=== PATIENT | female | born 1975 | race Caucasian/White ===

== ENCOUNTER 2018-02-23 14:47 | Emergency (ER) | payer OTHER ==
[2018-02-23 15:42] LABS: #Basophils 0.1 thou/uL (0.0-0.2); #Eosinphils 0.1 thou/uL (0.0-0.7); #Lymphocytes 2.1 thou/uL (1.20-3.40); #Monocytes 0.5 thou/uL (0.11-0.59); %Basophils 0.6 % (0.0-1.0); %Eosinophils 0.8 % (0.0-10.0); %Lymphocytes 21.6 % (21.0-51.0); %Monocytes 5.6 % (0.0-10.0); %Neutrophils 71.4 % (42.0-75.0); Hemoglobin 13.4 g/dL (12.0-16.0); Mean Corpuscular HGB CONC 33.7 g/dL (32.0-36.0); Mean Corpuscular Volume 86.2 fL (78.0-98.0); Mean Platelet Volume 7.8 fL (7.4-10.4); Platelet Count 279 thou/uL (130-400); RBC Distribution Width 11.8 % (11.5-14.5); Red Blood Cell (RBC) Count 4.63 mill/uL (4.20-5.40); White Blood Cell (WBC) Count 9.8 thou/uL (4.8-10.8)
[2018-02-23 16:43] LABS: Bacteria/HPF 4+ HPF (None Seen); Bilirubin Negative (Negative); Blood, Urine Large (Negative); Glucose, Urine (Dipstick) Negative (Negative); Hyaline Casts/LPF 7-10 HYALINE CAST LPF (0-3 Hyaline); Leukocyte Trace (Negative); Nitrite Positive (Negative); Protein, Urine (Dipstick) 100 mg/dL (Neg-Trace); Urobilinogen 0.2 mg/dL (0.2-1.0); WBC/HPF 21-50 HPF (0-3); pH, Urine 8.5 (5.0-9.0)
[2018-02-23 16:45] LABS: Clarity Cloudy (Clear); Pathc Cast-AUWi Flag 3.35 (0-2.49)
[2018-02-23 16:49] LABS: RBC/HPF GREATER THAN 50-TNTC HPF (0-3)
== END 2018-02-23 17:01 | disposition home or self-care (01) ==
LOC: ERS 14:47
DX: O20.0 Threatened abortion (principal); Z3A.01 Less than 8 weeks gestation of pregnancy
CPT/HCPCS: 81003; 81015; 84702; 85025; 86900; 86901; 90384; 96360; 96372

== ENCOUNTER 2019-03-19 12:23 | Inpatient (IN) | payer OTHER ==
[2019-03-19] MEDS ORDERED: Labetalol HCl 100 MG/20 ML VIAL ONE ×2 (13:45→13:54)
[2019-03-19 13:51] VITALS: BMI 39.5
[2019-03-19] MEDS ORDERED: Promethazine HCl 25 MG/ML VIAL IM PRN ×2 (13:56→17:07)
[2019-03-19] MEDS ORDERED: hydrALAZINE 20 MG/ML VIAL SLOW IVP PRN (13:56)
[2019-03-19] MEDS ORDERED: Ondansetron PF 4 MG/2 ML Vial IVP PRN ×2 (13:56→17:07)
[2019-03-19] MEDS ORDERED: Bicitra 30 ML UDCUP PO SCH ×3 (14:00→16:45)
[2019-03-19] MEDS ORDERED: Betamet Acet/Betamet Na Ph 30 MG/5 ML VIAL IM SCH (14:00)
[2019-03-19] MEDS ORDERED: Labetalol HCl 100 MG/20 ML VIAL SLOW IVP SCH ×2 (14:00→14:45)
[2019-03-19] MEDS ORDERED: Magnesium Sulfate 20 gm/500 ml 20 GM/500 ML BAG IVPB PRN (14:05)
--- NOTE | 2019-03-19 14:05 | PDOC.EVN ---
Event Note - Event Note Event Note: 1400 [facility] I was notified of Ms Loyd's arrival. HX CHTN...for repeat EC EGA is 35 weeks Sent by MD Thom for elevated BPs in office. here BP was 189/102....given labetolol for severe range urgent HTN. As over 34 weeks, we will: 1. Give Mag 2. Give Celestone x1 3. Notify Pedi 4. Plan for repeat CS...D/W DR Tomas. We will plan this after her clinic around 1630 today. I am on the way to go see her in Triage. Admitted to L&D
[2019-03-19] MEDS: Betamet Acet/Betamet Na Ph 30 MG/5 ML VIAL ONE ×2 (14:14→16:03)
[2019-03-19] MEDS ORDERED: Clindamycin/D5W 900 MG in Premix Bag 1 BAG IVPB SCH (14:15)
[2019-03-19 14:25] LABS: Mean Corpuscular HGB CONC 35.4 g/dL (32.0-36.0); Mean Corpuscular Hemoglobin 30.5 pg (27.0-31.0); Mean Corpuscular Volume 86.1 fL (78.0-98.0); Platelet Count 178 thou/uL (130-400); RBC Distribution Width 12.1 % (11.5-14.5); Red Blood Cell (RBC) Count 3.59 mill/uL (4.20-5.40)
--- NOTE | 2019-03-19 14:40 | HP ---
TIME OF EVALUATION: Roughly 1400 hours to 1415 hours. LOCATION: Triage. Please label this severe preeclampsia at 35 weeks. The patient of Dr. Tomas. HISTORY OF PRESENT ILLNESS: This is a 43-year-old female, 5, para 2, who has a history of chronic hypertension on Procardia 30 mg p.o. daily, who was seen in the office today and was sent by Dr. Tomas for blood pressure evaluation as her pressure there was elevated above her baseline. Here in Labor and Delivery, her first blood pressure was 189/102 and 158/72. The 3rd blood pressure was 160/82. This has defaulted to our stat antihypertensive medication which she has given. I have also ordered an additional labetalol 20 mg IV x1 as her blood pressure did not respond to the initial hydralazine. She denies visual changes or headache or contractions. She has good movement. She has no vaginal bleeding or leakage of fluid. REVIEW OF SYSTEMS: Complete review of systems was checked and is otherwise negative unless specified in the HPI. PAST MEDICAL HISTORY: Significant for chronic hypertension. MEDICATIONS: Procardia 30 mg p.o. daily. PAST SURGICAL HISTORY: One . SOCIAL HISTORY: Negative for alcohol, tobacco, or drug use. OB HISTORY: She has had one previous with her last and she desires a repeat with this one. PHYSICAL EXAMINATION: VITAL SIGNS: Her blood pressure is 163/89 and then it marco antonio to 170/90 when I was in the room. GENERAL: She is in no acute distress. ABDOMEN: Soft and nontender. There is no gross evidence of bleeding or leakage of fluid on the perineum. CERVIX: Cervical exam was deferred at this time. monitor, heart tones show a reactive nonstress test with a baseline rate around 130s. No contractions on tocodynamometer. ASSESSMENT: This is a 43-year-old, G5, P2, at 35 weeks with a history of previous , who is on Procardia 30 mg p.o. daily, 35 weeks and zero days, with severe range of blood pressures. PLAN: 1. I have discussed the case with Dr. Tomas. 2. I evaluated the patient at bedside and recommended delivery as she is over 34 weeks. 3. Due to her severe range of blood pressures, the risk of abruption and potential cerebrovascular event is greater than the risk of prematurity at this time. 4. I have notified Dr. Butler by [employer] of the patient's delivery. 5. It is important to note that there currently are no NICU beds. If the baby has to be transferred, it will be stabilized and then transferred, but at this time I do not feel the maternal transport is recommended as her pressures are severely elevated. 6. I have recommended NICU come talk to the mother about potential baby transport if necessary. 7. Based on Dr. Tomas's schedule and the fact that we are awaiting some steroid benefit (Celestone has been ordered x1), we will plan to do the around 4:30 to 5:00 p.m. this afternoon. 8. I have notified Anesthesia as well. 9. The patient has allergies to penicillin, so I have ordered her clindamycin for preop evaluation. 10. Magnesium sulfate. Job ID: [id number]
--- NOTE | 2019-03-19 14:44 | PDOC.EVN ---
Event Note - Event Note Event Note: 1445: Ordered 40mg Labetolol SIVP for BP 190/105. Dr Butler (NICU) and I discussed with her possibility of ransport if needed due to no NICU beds here. Patient aware
[2019-03-19 14:48] LABS: ALT (SGPT) 12 U/L (8-55); AST (SGOT) 16 U/L (5-34); Albumin 3.3 g/dL (3.5-5.0); Alkaline Phosphatase 110 U/L (40-110); Anion Gap 12 mmol/L (10-20); BUN (Urea Nitrogen) 6 mg/dL (7.0-18.7); Bilirubin, Total 0.2 mg/dL (0.2-1.2); Calc. Creatinine Clearance 223 mL/min (70-130); Calcium 9.3 mg/dL (7.8-10.44); Carbon Dioxide 22 mmol/L (22-29); Chloride 106 mmol/L (98-107); Estimated GFR-MDRD Greater than 90; Globulin 3.3 g/dL (2.4-3.5); Glucose 77 mg/dL (70-105); Potassium 4.1 mmol/L (3.5-5.1); Protein, Total 6.6 g/dL (6.0-8.3); Sodium 136 mmol/L (136-145)
[2019-03-19 15:06] LABS: Syphilis Antibody Nonreactive (Nonreactive); Syphilis Antibody Index 0.05 S/CO (<1.00 Non-Reactive)
[2019-03-19 15:07] LABS: HBSAg Index 0.19 S/CO (0-0.99); HIV (1/2) Antibody/Antigen Non-Reactive (NonReactive); HIV 1/2 INDEX 0.09 S/CO (<1.00); Hep B Surf Ag Non-Reactive S/CO (NonReactive)
[2019-03-19] MEDS ORDERED: Famotidine/PF 20 mg/2ml Vial ONE (16:20)
[2019-03-19] MEDS ORDERED: MORPHINE 5 MG/10 ML PF VIAL ONE (16:23)
[2019-03-19] MEDS ORDERED: Oxytocin 10 UNITS/ML VIAL ONE (16:24)
[2019-03-19] MEDS ORDERED: ePHEDrine/0.9% NaCl/PF SYRINGE 50 mg/10 ml ONE (16:25)
[2019-03-19] MEDS ORDERED: PHENYLEPHRINE-NS 100 MCG/ML 10 ML SYRINGE ONE (16:25)
[2019-03-19] MEDS ORDERED: Calcium Gluc 4.6 MEQ/10 ML (100 MG/ML) SLOW IVP PRN (16:33)
[2019-03-19] MEDS ORDERED: traMADol HCl 50 MG TAB PO PRN ×2 (16:33)
[2019-03-19] MEDS ORDERED: CEFAZOLIN 2 GM in Premix Bag 1 BAG IVPB SCH (16:45)
[2019-03-19] MEDS ORDERED: Ondansetron PF 4 MG/2 ML Vial ONE (16:51)
[2019-03-19] MEDS ORDERED: Ketorolac Tromethamine 30 MG/ML VIAL ONE (16:55)
[2019-03-19] MEDS ORDERED: HYDROmorphone 2 MG/ML VIAL SLOW IVP PRN (17:07)
[2019-03-19] MEDS ORDERED: Naloxone HCl 0.4 mg/ml Vial IVP PRN ×2 (17:07)
[2019-03-19] MEDS ORDERED: diphenhydrAMINE 50 MG/ML VIAL IVP PRN (17:07)
[2019-03-19] MEDS ORDERED: Naloxone HCl 0.4 mg/ml Vial IV PRN (17:07)
[2019-03-19] MEDS ORDERED: Meperidine HCl/PF 25 MG/ML VIAL SLOW IVP PRN (17:07)
[2019-03-19] MEDS ORDERED: Promethazine HCl 25 MG SUPP PR PRN (17:07)
[2019-03-19] MEDS ORDERED: Ondansetron HCl/PF 4 MG/2 ML Vial IVP PRN (17:07)
[2019-03-19] MEDS ORDERED: L&D-Morphine 4 MG/ML VIAL SLOW IVP PRN (17:07)
[2019-03-19] MEDS ORDERED: Communication Order-Pharmacy FS SCH (17:15)
[2019-03-19 17:27] LABS: Actual Bicarbonate (HCO3a) 26.6 mEq/L (22-28); Base Excess (BEa) -2.4 mEq/L (-2.0 to +3.0)
--- NOTE | 2019-03-19 17:42 | OP ---
DATE OF PROCEDURE: 03/19/2019 ROBOTIC WELD TECHNICIAN NOTE TIME OF DELIVERY: Roughly 1658. PREOPERATIVE DIAGNOSIS: The patient with a prior x1, who is at 35 weeks and 1 day with severe range of blood pressures requiring repeat . PROCEDURE PERFORMED: Repeat and vacuum-assisted head delivery to the hysterotomy x1 (no pop-off). ROBOTIC WELD TECHNICIAN: Francisco Huber MD ANESTHESIA: Spinal. ANTIBIOTICS: Clindamycin 900 mg IV x1. DESCRIPTION OF PROCEDURE: This is a brief assist note. For full details of the surgery, please turn to the surgeon's operative dictation. In brief, I assisted with the from skin incision all the way to fascial closure. At fascial closure, after that was complete, I scrubbed out due to a patient's needs in the emergency department. Dr. Tomas and the surgical services assistant completed the subcutaneous fatty tissue closure and the skin approximation with alpa. It is important to note that we proceeded with a low transverse section without extension via Pfannenstiel skin incision. A vacuum was used to assist with head delivery to the hysterotomy as it was not engaged and it was difficult to put fundal pressure to deliver the child due to the patient's BMI. It is important to note that the vacuum used was effortless without pop-off and only one attempt was required before successful head delivery. Baby was to be transferred to another NICU because our NICU was full. The indication for transport is grunting and retraction. The baby is breathing by itself and did not require resuscitation, but due to the grunting and retraction with breathing, it was felt by Neonatology that the baby should be transported. This was explained to the mother. We will continue with her magnesium sulfate postop. Job ID: [id number] [facility]
[2019-03-19] MEDS ORDERED: NS / Oxytocin 40 units/1000ml 1,000 ML ONE (18:32)
--- NOTE | 2019-03-19 19:25 | OP ---
DATE OF PROCEDURE: 03/19/2019 PREOPERATIVE DIAGNOSES: 1. A 43-year-old white female, G5, P2, A2 at 35 weeks with chronic hypertension with superimposed severe preeclampsia by blood pressure criteria. 2. Prior section x2. POSTOPERATIVE DIAGNOSES: 1. A 43-year-old white female, G5, P2, A2 at 35 weeks with chronic hypertension with superimposed severe preeclampsia by blood pressure criteria. 2. Prior section x2. PROCEDURE PERFORMED: Repeat low transverse section without extensions. BAGGAGE PORTER HEAD SURGEON: Francisco Huber MD, OB hospitalist service. ANESTHESIA: Spinal block. ESTIMATED BLOOD LOSS: 150 mL. COMPLICATIONS: None. COUNTS: Correct times x2. ANTIBIOTICS: 2 g Ancef, on-call to OR. FINDINGS: 1. Male at 35 weeks gestation with weight of 6 pounds 11 ounces. Cord ABG gas was pH of 7.233, pCO2 of 64.5, -2.4, ABG gas excess. Apgars are still pending at time of this dictation. 2. Normal-appearing uterus, fallopian tubes, ovaries. 3. Clear urine present in Covarrubias catheter postprocedure. PATHOLOGY: Would be the placenta. DISPOSITION: To LICU for continue magnesium prophylaxis and IV blood pressure control as indicated. DESCRIPTION OF PROCEDURE: The patient previously received informed consent in regard to surgery. She was taken back to the operating room, where she received a spinal block without complications. She was then placed in supine position prepped and draped in usual sterile fashion. A Covarrubias catheter had already been placed. A Pfannenstiel incision was made in the lower abdomen through the previous scar site. The fascia was reached. It was incised with Hackett scissors bilaterally with curved Hackett scissors. The rectus muscle bellies were dissected superiorly and inferiorly off the rectus fascia. The peritoneal cavity was entered. John O retractor was placed. A 2 cm hysterotomy incision was made in the lower uterine segment and extended via finger fractionation. Amniotic bag was ruptured with clear fluid noted. The baby was then delivered in the vertex presentation and assistance of the head delivered was made with one application of the vacuum extractor. The mouth and nares of the infant were bulb suctioned on the abdomen. The cord was doubly clamped and cut. The baby was handed to the pediatric team in attendance with Dr. Butler of neonatology. The cord gas was obtained. Cord blood was obtained also. Placenta was manually extracted and uterus was curetted of any remaining placental fragments with a dry laparotomy sponge. The hysterectomy incision was closed in a running locking with #1 Monocryl suture. Hemostasis was confirmed. The John O retractor was removed. The hysterotomy incision was then revisualized and noted to be hemostatic. The rectus muscle bellies were noted to be hemostatic prior to fascial closure. The fascia was closed with 0 PDS suture x2 in a running continuous fashion. Subcutaneous tissue was then irrigated and coagulating areas of oozing prior to reapproximation with a running 2-0 plain gut. The skin was then closed with alpa. The surgery was terminated. No anesthetic or surgical complications occurred. Job ID: [id number]
[2019-03-19] MEDS: Magnesium Sulfate 20 GM in Dextrose 5% in Water 460 ML IV SCH (22:26)
[2019-03-19] MEDS ORDERED: Acetaminophen 1,000 MG in Premix Bag 1 BAG IVPB PRN (23:00)
[2019-03-20] MEDS ORDERED: Ketorolac Tromethamine 30 MG/ML VIAL IVP PRN (01:00)
--- NOTE | 2019-03-20 02:36 | PDOC.EVN ---
Event Note - Event Note Event Note: BP review: In general BPs non-severe at 140s/80-90s. There was a high value last PM but repeat was nonsevere and one value where the systolic was 180...but was lying on cuff. Continue MagSulfate
[2019-03-20 04:29] LABS: Hemoglobin 11.4 g/dL (12.0-16.0); Mean Corpuscular HGB CONC 34.4 g/dL (32.0-36.0); Mean Corpuscular Hemoglobin 30.1 pg (27.0-31.0); Mean Corpuscular Volume 87.7 fL (78.0-98.0); Mean Platelet Volume 8.9 fL (7.4-10.4); Platelet Count 197 thou/uL (130-400); RBC Distribution Width 12.2 % (11.5-14.5); Red Blood Cell (RBC) Count 3.78 mill/uL (4.20-5.40); White Blood Cell (WBC) Count 14.7 thou/uL (4.8-10.8)
--- NOTE | 2019-03-20 06:19 | PDOC.PP ---
Post Progress Note Post Day #: 1 Subjective: Feels ok...no PERERA or visual changes PO intake tolerated: yes Flatus: yes Ambulation: yes Vital Signs (12 hours) Pulse Ox 03/19/19 20:00 98 Weight Weight 260 lb BPs reviewed: 140-150s/90s in general mag in use Good UOP - Physical Examination General: NAD Cardiovascular: no m/r/g Respiratory: clear to auscultation bilaterally Abdominal: lochia, no distention, appropriately TTP Extremities: negative homans (B) Skin: CS incision dry & intact (Stephanie in use (bandage in use)) Result Diagrams: 03/20/19 04:02 03/19/19 14:14 Additional Labs: Post Labs Blood Type O NEGATIVE 03/19/19 14:14 Hep Bs Antigen Non-Reactive S/CO (NonReactive) 03/19/19 14:14 (1) Delivery by section Code(s): [id number] - Status: Acute (2) Severe pre-eclampsia in third trimester Code(s): O14.13 - SEVERE PRE-ECLAMPSIA, THIRD TRIMESTER Status: Acute - Assessment/Plan POD 1...will be 24 hrs postop at around 1700. We will start oral procardia 30mg today Follow BPs No complications seen Doing well SCDs in use Advance diet
[2019-03-20] MEDS: Magnesium Sulfate 20 GM in Dextrose 5% in Water 460 ML IV SCH (08:05)
[2019-03-20] MEDS: NIFEdipine XL 30 MG TAB PO SCH (08:59)
[2019-03-20] MEDS ORDERED: HYDROcodone/Acetaminophen 5/325 mg Tablet PO PRN (11:25)
[2019-03-20] MEDS: HYDROcodone/Acetaminophen 5/325 mg Tablet PO PRN (17:05)
[2019-03-20] MEDS: Ibuprofen 800 MG TAB PO PRN (17:05)
[2019-03-20] MEDS ORDERED: Promethazine HCl 25 MG/ML VIAL IM PRN (18:36)
[2019-03-20] MEDS ORDERED: Adacel (T-DAP) 0.5 ML SYRINGE IM ONE (18:36)
[2019-03-20] MEDS ORDERED: Methylergonovine 0.2 MG/ML VIAL IM PRN (18:36)
[2019-03-20] MEDS ORDERED: Zolpidem Tartrate 5 MG TAB PO PRN (18:36)
[2019-03-20] MEDS ORDERED: Lanolin Ointment 7 GM TUBE TOP PRN (18:36)
[2019-03-20] MEDS ORDERED: Varicella virus, LIVE 0.5 ML VIAL SC ONE (18:36)
[2019-03-20] MEDS ORDERED: hydrALAZINE 20 MG/ML VIAL SLOW IVP PRN (18:36)
[2019-03-20] MEDS ORDERED: Ondansetron PF 4 MG/2 ML Vial IVP PRN (18:36)
[2019-03-20] MEDS ORDERED: Misoprostol 200 MCG TAB PR PRN (18:36)
[2019-03-20] MEDS ORDERED: Measles/Mumps/Rubella 10 MCG/0.5 ML VIAL SC ONE (18:36)
[2019-03-20] MEDS ORDERED: NS / Oxytocin 40 units/1000ml 1,000 ML IV SCH (18:45)
[2019-03-20] MEDS: Ferrous Sulfate 325 MG TAB PO SCH (20:25)
[2019-03-20] MEDS: Docusate Calcium (SURFAK) 240 MG CAP PO SCH (22:27)
[2019-03-20] MEDS: Simethicone Chewable 80 MG TAB PO PRN (22:28)
[2019-03-21] MEDS ORDERED: Sodium Chloride 0.9% 10 ML ONE (02:00)
[2019-03-21] MEDS: Ibuprofen 800 MG TAB PO PRN ×2 (04:55→14:11)
[2019-03-21] MEDS: HYDROcodone/Acetaminophen 5/325 mg Tablet PO PRN (04:57)
--- NOTE | 2019-03-21 06:59 | PDOC.PP ---
Post Progress Note Post Day #: 2 Subjective: Doing well, no complaints. Would like to go home today. PO intake tolerated: yes Flatus: yes Ambulation: yes Vital Signs (12 hours) Temp Pulse Resp BP Pulse Ox 03/21/19 05:10 77 159/72 H 03/21/19 04:54 98.2 F 75 16 164/76 H 03/21/19 02:00 98.5 F 91 16 129/64 03/20/19 20:05 98.6 F 85 16 157/86 H 98 Weight Weight 260 lb - Physical Examination General: NAD Respiratory: non-labored breathing Abdominal: lochia (normal), no distention, appropriately TTP Fundus firm & at: below umbilicus Skin: CS incision dry & intact, no rash Neurological: no gross focal deficits Psychiatric: A&Ox3, normal affect Result Diagrams: 03/20/19 04:02 03/19/19 14:14 Additional Labs: Post Labs Blood Type O NEGATIVE 03/19/19 14:14 Hep Bs Antigen Non-Reactive S/CO (NonReactive) 03/19/19 14:14 (1) Delivery by section Code(s): CFQ3957 - Status: Acute (2) Severe pre-eclampsia in third trimester Code(s): O14.13 - SEVERE PRE-ECLAMPSIA, THIRD TRIMESTER Status: Acute - Assessment/Plan Single severe range overnight but mostly normal to mild range. Continue to monitor BPs today. Possible d/c home later this afternoon.
[2019-03-21] MEDS ORDERED: Prenatal Vitamin 1 TAB PO SCH (09:00)
[2019-03-21] MEDS: Docusate Calcium (SURFAK) 240 MG CAP PO SCH (09:03)
[2019-03-21] MEDS: Simethicone Chewable 80 MG TAB PO PRN (09:03)
[2019-03-21] MEDS: Ferrous Sulfate 325 MG TAB PO SCH (09:04)
[2019-03-21] MEDS: NIFEdipine XL 30 MG TAB PO SCH (09:04)
[2019-03-21 17:58] VITALS: BP 148/68; TEMP 98.4
--- NOTE | 2019-03-21 19:56 | DIS ---
DATE OF ADMISSION: 03/19/2019 DATE OF DISCHARGE: 03/21/2019 ADMITTING DIAGNOSES: 1. Intrauterine at 35 weeks. 2. Preeclampsia with severe features. 3. Previous x1. DISCHARGE DIAGNOSES: 1. Intrauterine at 35 weeks. 2. Preeclampsia with severe features. 3. Previous x1. PROCEDURE: Repeat lower transverse section. CONSULTATIONS: Neonatology. HOSPITAL COURSE: The patient is a 43-year-old female, G5, now P3, with a history of chronic hypertension, on Procardia XL 30 mg daily, presenting to the office today with elevated blood pressures ranging 158 to 189 systolic and 72 to 102 diastolic, requiring multiple doses of blood pressure medicine to bring it down. Given her gestational age, decision was made ultimately for delivery by repeat . For complete details, please refer to the operative note. The patient's postoperative course has been uncomplicated. She is continued on her Procardia XL 30 mg daily. She had magnesium for 24 hours postoperatively for seizure prophylaxis. Her blood pressures remained in the normal to mild range on her given dose for the last 24 hours. She has no symptomatology of concern today at time of discharge. PHYSICAL EXAMINATION: VITAL SIGNS: Blood pressure is 148/68, temperature 98.4, pulse of 74, respiratory rate of 20. General she appears to be in no acute distress. GENERAL: She is alert, oriented, cooperative, and pleasant to interact with. HEENT: Head, normocephalic and atraumatic. Fundus is firm. Incision is clean, dry, and intact. EXTREMITIES: Nontender and nonedematous. The patient is being discharged to home. She has been given instructions to seek medical attention if she experiences fever, increasing pain or bleeding, drainage or redness from her incision site. She also has been given instructions to limit lifting to 15 pounds for the next 4 to 6 weeks to refrain from driving for the next 2 weeks or while on narcotics and to make a followup appointment with Dr. Tomas in 1 week for blood pressure check. The patient is being discharged home with ibuprofen 800 mg to be taken 3 times a day as needed for pain control, Procardia XL 30 mg one tablet daily #20 and tramadol 50 mg 1 to 2 tablets p.o. q.4 hours p.r.n. for pain #30. Job ID: [id number]
== END 2019-03-21 19:30 | disposition home or self-care (01) | DRG 788 ==
LOC: L&D/OP 12:23 → L&D 13:00 → 3SW 03-20 20:07
PROVIDERS: ADMIT Obstetrics & Gynecology; ATTEND Obstetrics & Gynecology
PROC: 10D00Z1 Extraction of Products of Conception, Low, Open Approach (ICD-10-PCS; principal; 2019-03-19)
DX: O14.14 Severe pre-eclampsia complicating childbirth (principal); O34.211 Maternal care for low transverse scar from previous cesarean delivery; Z3A.35 35 weeks gestation of pregnancy; Z37.0 Single live birth; Z88.0 Allergy status to penicillin
CPT/HCPCS: 36415; 51702; 80053; 81003; 82805; 85027; 85461; 86780; 86850; 86870; 86900; 86901; 87340; 87389; 90384; 96372; 99285; J0131; J0702; J1885; J2274; J2405; J2590; J3475; J3490; J7070; S0028